=== PATIENT | male | born 1955 | race Caucasian/White ===

== ENCOUNTER → 2025-09-08 | Day surgery (SDC) | payer MEDICARE, BC ==
[~2025-09-08] MED LIST: Lactated Ringers 1,000 ML IV ONE; Propofol 200 MG/20 ML SDV IV ONE; Propofol 200 MG/20 ML SDV ONE
[2025-09-08] MEDS: Lactated Ringers 1,000 ML IV SCH (05:53)
[2025-09-08 08:09] VITALS: BP 124/69; PULSE 62
== END ==
LOC: DL.ENDO 05:27
PROVIDERS: ATTEND Internal Medicine Gastroenterology
DX: Z12.11 Encounter for screening for malignant neoplasm of colon (principal); D12.4 Benign neoplasm of descending colon; K64.4 Residual hemorrhoidal skin tags; K64.8 Other hemorrhoids; K57.30 Diverticulosis of large intestine without perforation or abscess without bleeding; I10 Essential (primary) hypertension; E78.5 Hyperlipidemia, unspecified; E11.9 Type 2 diabetes mellitus without complications; E66.9 Obesity, unspecified; Z68.32 Body mass index [BMI] 32.0-32.9, adult; Z79.899 Other long term (current) drug therapy
CPT/HCPCS: 00811; 45385; 88305; J2704; J7120